=== PATIENT | male | born 1980 | race Caucasian/White ===

== ENCOUNTER 2024-01-22 01:15 | Inpatient (IN) | payer BC, OTHER ==
[~2024-01-22] VITALS: Ht 190.5 cm; Wt 161.5 kg
[2024-01-22 01:22] VITALS: BP_SYST 116; PULSE 124; RESP 16; TEMP 96.5; O2SAT 94
[2024-01-22] MEDS: LIDOCAINE 1% 10 MG/ML, 20 ML MDV INJ ONE (02:00)
[2024-01-22] MEDS ORDERED: VANCOMYCIN HCL 1000 MG/VIAL IV ONE (02:26)
[2024-01-22] MEDS: NACL 0.9% 2,500 ML IV ONE (02:28)
[2024-01-22] MEDS: VANCOMYCIN HCL 1,000 MG in NS 250 ML IV ONE (02:29)
[2024-01-22 02:39] LABS: BASOPHILS # (AUTO) 0.1 K/uL (0.0-0.2); BASOPHILS % (AUTO) 0.9 % (0.0-2.0); EOSINOPHILS # (AUTO) 0.2 K/uL (0.0-0.4); EOSINOPHILS % (AUTO) 1.9 % (0.0-4.0); HEMATOCRIT 42.4 % (36-54); HEMOGLOBIN 14.5 g/dL (14.0-18.0); LYMPHOCYTES # (AUTO) 0.3 K/uL (1.0-5.5); LYMPHOCYTES % (AUTO) 2.9 % (20.5-51.5); MEAN CORPUSCULAR HEMOGLOBIN 28 pg (27-31); MEAN CORPUSCULAR HGB CONC 34 % (32-36); MEAN CORPUSCULAR VOLUME 81 fL (79.0-98.0); MONOCYTES # (AUTO) 0.6 K/uL (0.0-1.0); MONOCYTES % (AUTO) 5.8 % (1.7-9.3); NEUTROPHILS # (AUTO) 8.6 K/uL (1.8-7.7); NEUTROPHILS % (AUTO) 88.5 % (40.0-70.0); PLATELET COUNT (AUTO) 149 K/uL (130-430); RED BLOOD CELL COUNT(AUTO) 5.25 MIL/uL (4.2-6.2); RED CELL DISTRIBUTION WIDTH 14.9 % (9.0-15.0); WHITE BLOOD COUNT (AUTO) 9.7 K/uL (4.8-10.8)
[2024-01-22 03:11] LABS: CALCIUM 8.4 mg/dL (8.4-11.0); CREATININE 1.38 mg/dL (0.55-1.30); POTASSIUM 3.7 mmol/L (3.5-5.1)
[2024-01-22 03:25] LABS: ALBUMIN 3.2 g/dL (3.4-4.8); BILIRUBIN,DIRECT 0.2 mg/dL (0.0-0.3); TOTAL BILIRUBIN 0.7 mg/dL (0.0-1.0); TOTAL PROTEIN, SERUM 7.6 g/dL (6.4-8.3)
[2024-01-22] MEDS ORDERED: MORPHINE 2 MG/ML INJ. SYRINGE ONE (03:26)
[2024-01-22] MEDS: MORPHINE 4 MG INJ. 4 MG/ML VIAL IVP ONE (04:15)
[2024-01-22] MEDS: ACETAMINOPHEN 500 MG TABLET PO ONE (04:19)
[2024-01-22] MEDS ORDERED: CLINDAMYCIN 600 mg/50mL D5W 50 ML IV ONE (04:33)
[2024-01-22] MEDS: CLINDAMYCIN 600 MG in D5W 50 ML IV ONE (04:50)
[2024-01-22] MEDS ORDERED: PRAV10TA PO (05:31)
[2024-01-22 11:03] VITALS: BP_SYST 116; PULSE 100; RESP 16; TEMP 98.3; O2SAT 100
[2024-01-22 11:19] VITALS: BP_SYST 136; PULSE 101; RESP 18; TEMP 98; O2SAT 98
[2024-01-22] MEDS ORDERED: LORazepam 2 MG/ML VIAL IVP PRN (11:45)
[2024-01-22] MEDS ORDERED: NALOXONE HCL 0.4 MG/ML AMP (NARCAN) IVP PRN ×2 (11:45)
[2024-01-22] MEDS ORDERED: ONDANSETRON HCL 4 MG/2 ML VIAL IVP PRN (11:45)
[2024-01-22] MEDS: NORMAL SALINE 5 ML DISP.SYRIN IVF SCH (13:54)
[2024-01-22] MEDS: CLINDAMYCIN 300 MG in D5W 50 ML IV ONE (13:54)
[2024-01-22] MEDS: HYDROcodone/ACETAMIN 10-325 MG TAB PO PRN (14:15)
[2024-01-22 16:15] VITALS: BP_SYST 133; PULSE 99; RESP 18; TEMP 98.2; O2SAT 98
[2024-01-22] MEDS ORDERED: CLINDAMYCIN 300 MG in D5W 50 ML IV SCH (18:00)
[2024-01-22] MEDS: VANCOMYCIN HCL 1.25 GM/NS 250 ML IV SCH (18:13)
[2024-01-22 19:30] VITALS: BP_SYST 109; PULSE 99; RESP 18; TEMP 99; O2SAT 99
[2024-01-22] MEDS: ATORVASTATIN 10 MG TABLET PO SCH (20:49)
[2024-01-22] MEDS ORDERED: PRAVASTATIN SODIUM 10 MG TABLET (PRAVACHOL) PO SCH (21:00)
[2024-01-22] MEDS: LINEZOLID 300 ML IV SCH (21:35)
[2024-01-22 22:30] VITALS: O2SAT 98
[2024-01-23] VITALS: BP_SYST 106; PULSE 88; RESP 16; TEMP 99.1; O2SAT 98
[2024-01-23 07:28] LABS: EOSINOPHILS # (AUTO) 0.4 K/uL (0.0-0.4); EOSINOPHILS % (AUTO) 7.9 % (0.0-4.0); HEMATOCRIT 38.8 % (36-54); LYMPHOCYTES # (AUTO) 0.4 K/uL (1.0-5.5); LYMPHOCYTES % (AUTO) 7.2 % (20.5-51.5); MEAN CORPUSCULAR HEMOGLOBIN 28 pg (27-31); MEAN CORPUSCULAR HGB CONC 34 % (32-36); MEAN CORPUSCULAR VOLUME 83 fL (79.0-98.0); MONOCYTES # (AUTO) 0.5 K/uL (0.0-1.0); MONOCYTES % (AUTO) 10.3 % (1.7-9.3); NEUTROPHILS # (AUTO) 3.9 K/uL (1.8-7.7); NEUTROPHILS % (AUTO) 74.6 % (40.0-70.0); PLATELET COUNT (AUTO) 135 K/uL (130-430); RED BLOOD CELL COUNT(AUTO) 4.68 MIL/uL (4.2-6.2); RED CELL DISTRIBUTION WIDTH 14.9 % (9.0-15.0); WHITE BLOOD COUNT (AUTO) 5.2 K/uL (4.8-10.8)
[2024-01-23 07:58] LABS: ALBUMIN 2.8 g/dL (3.4-4.8); CALCIUM 8.2 mg/dL (8.4-11.0); CREATININE 1.09 mg/dL (0.55-1.30); POTASSIUM 4.6 mmol/L (3.5-5.1); TOTAL BILIRUBIN 0.4 mg/dL (0.0-1.0); TOTAL PROTEIN, SERUM 6.8 g/dL (6.4-8.3)
[2024-01-23 08:05] VITALS: BP_SYST 95; PULSE 89; RESP 17; TEMP 98; O2SAT 100
[2024-01-23 10:29] VITALS: O2SAT 98
[2024-01-23 11:48] VITALS: BP_SYST 105; PULSE 84; RESP 17; TEMP 97.6; O2SAT 97
[2024-01-23] MEDS: ACETAMINOPHEN 325 MG TABLET PO PRN (16:38)
[2024-01-23 17:00] VITALS: BP_SYST 110; PULSE 82; RESP 17; TEMP 99.3; O2SAT 98
[2024-01-23 20:25] VITALS: BP_SYST 138; PULSE 87; RESP 18; TEMP 98.8; O2SAT 97
[2024-01-24 00:15] VITALS: BP_SYST 106; PULSE 87; RESP 18; TEMP 99.1; O2SAT 96
[2024-01-24 04:20] LABS: ERYTHROCYTE SEDIMENTATION RATE 47 MM/HR (0-15)
[2024-01-24 04:59] LABS: BASOPHILS % (AUTO) 0.4 % (0.0-2.0); EOSINOPHILS # (AUTO) 0.4 K/uL (0.0-0.4); HEMATOCRIT 40.2 % (36-54); HEMOGLOBIN 13.5 g/dL (14.0-18.0); LYMPHOCYTES # (AUTO) 0.8 K/uL (1.0-5.5); MEAN CORPUSCULAR HEMOGLOBIN 28 pg (27-31); MEAN CORPUSCULAR HGB CONC 34 % (32-36); MEAN CORPUSCULAR VOLUME 82 fL (79.0-98.0); MONOCYTES # (AUTO) 0.4 K/uL (0.0-1.0); MONOCYTES % (AUTO) 10.7 % (1.7-9.3); NEUTROPHILS # (AUTO) 2.1 K/uL (1.8-7.7); NEUTROPHILS % (AUTO) 56.9 % (40.0-70.0); PLATELET COUNT (AUTO) 140 K/uL (130-430); RED CELL DISTRIBUTION WIDTH 14.7 % (9.0-15.0); WHITE BLOOD COUNT (AUTO) 3.7 K/uL (4.8-10.8)
[2024-01-24 05:07] LABS: CREATININE 0.96 mg/dL (0.55-1.30)
[2024-01-24 08:00] VITALS: BP_SYST 131; PULSE 62; RESP 18; TEMP 99.2; O2SAT 98; O2SAT 99
[2024-01-24 12:51] VITALS: BP_SYST 122; PULSE 73; RESP 17; TEMP 99; O2SAT 99
[2024-01-24 16:27] VITALS: BP_SYST 128; PULSE 65; RESP 18; TEMP 99.1; O2SAT 98
[2024-01-24 20:30] VITALS: BP_SYST 128; PULSE 88; RESP 18; TEMP 97.3; O2SAT 96
[2024-01-24] MEDS: DIPHENHYDRAMINE INJ 50 MG/ML VIAL IVP ONE (23:11)
[2024-01-25] MEDS ORDERED: DIPHENHYDRAMINE HCL 12.5 MG/5 ML UDC PO SCH
[2024-01-25 00:30] VITALS: BP_SYST 141; PULSE 86; RESP 18; TEMP 97.5; O2SAT 86
[2024-01-25 04:40] LABS: BASOPHILS % (AUTO) 0.5 % (0.0-2.0); EOSINOPHILS # (AUTO) 0.4 K/uL (0.0-0.4); EOSINOPHILS % (AUTO) 8.6 % (0.0-4.0); HEMATOCRIT 40.7 % (36-54); HEMOGLOBIN 13.5 g/dL (14.0-18.0); LYMPHOCYTES # (AUTO) 2.1 K/uL (1.0-5.5); LYMPHOCYTES % (AUTO) 46.4 % (20.5-51.5); MEAN CORPUSCULAR HEMOGLOBIN 27 pg (27-31); MEAN CORPUSCULAR HGB CONC 33 % (32-36); MEAN CORPUSCULAR VOLUME 82 fL (79.0-98.0); MONOCYTES # (AUTO) 0.5 K/uL (0.0-1.0); MONOCYTES % (AUTO) 11.1 % (1.7-9.3); NEUTROPHILS # (AUTO) 1.5 K/uL (1.8-7.7); NEUTROPHILS % (AUTO) 33.4 % (40.0-70.0); PLATELET COUNT (AUTO) 152 K/uL (130-430); RED BLOOD CELL COUNT(AUTO) 4.97 MIL/uL (4.2-6.2); RED CELL DISTRIBUTION WIDTH 15.1 % (9.0-15.0); WHITE BLOOD COUNT (AUTO) 4.5 K/uL (4.8-10.8)
[2024-01-25 05:18] LABS: ALBUMIN 2.9 g/dL (3.4-4.8); CALCIUM 8.1 mg/dL (8.4-11.0); CREATININE 0.94 mg/dL (0.55-1.30); POTASSIUM 3.9 mmol/L (3.5-5.1); TOTAL BILIRUBIN 0.3 mg/dL (0.0-1.0); TOTAL PROTEIN, SERUM 6.3 g/dL (6.4-8.3)
[2024-01-25 05:29] LABS: ERYTHROCYTE SEDIMENTATION RATE 53 MM/HR (0-15)
[2024-01-25] MEDS: methylPREDNISolone SOD SUCC/PF 62.5 MG/ML VIAL IVP SCH (06:40)
[2024-01-25] MEDS: DIPHENHYDRAMINE HCL 12.5 MG/5 ML UDC PO SCH (06:50)
[2024-01-25 08:00] VITALS: O2SAT 98
[2024-01-25 12:06] VITALS: BP_SYST 135; PULSE 87; RESP 17; TEMP 97.4; O2SAT 97
[2024-01-25 16:16] VITALS: BP_SYST 139; PULSE 83; RESP 18; TEMP 97.5; O2SAT 94
[2024-01-25 20:01] VITALS: BP_SYST 132; PULSE 85; RESP 18; TEMP 96.9; O2SAT 96
[2024-01-25 23:17] VITALS: BP_SYST 120; PULSE 84; RESP 18; TEMP 97.2; O2SAT 95
[2024-01-26] MEDS: HYDROcodone/ACETAMIN 5-325 MG TAB (NORCO/ VICODIN) PO PRN (01:40)
[2024-01-26 04:05] LABS: ERYTHROCYTE SEDIMENTATION RATE 55 MM/HR (0-15)
[2024-01-26 04:33] LABS: BASOPHILS % (AUTO) 0.6 % (0.0-2.0); HEMATOCRIT 43.8 % (36-54); HEMOGLOBIN 14.7 g/dL (14.0-18.0); LYMPHOCYTES # (AUTO) 2.2 K/uL (1.0-5.5); LYMPHOCYTES % (AUTO) 38.3 % (20.5-51.5); MEAN CORPUSCULAR HEMOGLOBIN 27 pg (27-31); MEAN CORPUSCULAR HGB CONC 34 % (32-36); MEAN CORPUSCULAR VOLUME 81 fL (79.0-98.0); MONOCYTES # (AUTO) 0.7 K/uL (0.0-1.0); MONOCYTES % (AUTO) 11.7 % (1.7-9.3); NEUTROPHILS # (AUTO) 2.8 K/uL (1.8-7.7); NEUTROPHILS % (AUTO) 49.4 % (40.0-70.0); PLATELET COUNT (AUTO) 192 K/uL (130-430); RED BLOOD CELL COUNT(AUTO) 5.39 MIL/uL (4.2-6.2); RED CELL DISTRIBUTION WIDTH 14.8 % (9.0-15.0); WHITE BLOOD COUNT (AUTO) 5.7 K/uL (4.8-10.8)
[2024-01-26 04:39] LABS: CALCIUM 8.4 mg/dL (8.4-11.0); CREATININE 1.03 mg/dL (0.55-1.30); POTASSIUM 3.9 mmol/L (3.5-5.1)
[2024-01-26 08:00] VITALS: BP_SYST 145; PULSE 85; RESP 17; TEMP 97.4; O2SAT 96
[2024-01-26 08:10] VITALS: O2SAT 96
[2024-01-26] MEDS: DOXYCYCLINE HYCLATE 100 MG CAPSULE PO SCH (09:42)
[2024-01-26] MEDS ORDERED: DOXY100C5 PO (11:50)
[2024-01-26] MEDS ORDERED: METH-776 PO (11:50)
[2024-01-26 12:38] VITALS: BP_SYST 145; PULSE 85; RESP 17; TEMP 97.4; O2SAT 96
== END 2024-01-26 13:10 | disposition home or self-care (01) | DRG 872 ==
LOC: SED 01:15 → STU 05:00 → SMU 12:20
PROVIDERS: ADMIT Preventive Medicine Preventive Medicine/Occupational Environmental Medicine; ATTEND Preventive Medicine Preventive Medicine/Occupational Environmental Medicine
DX: A41.9 Sepsis, unspecified organism (principal); E87.1 Hypo-osmolality and hyponatremia; L02.211 Cutaneous abscess of abdominal wall; N17.9 Acute kidney failure, unspecified; E78.5 Hyperlipidemia, unspecified; E88.09 Other disorders of plasma-protein metabolism, not elsewhere classified; E83.51 Hypocalcemia; D72.819 Decreased white blood cell count, unspecified; D64.9 Anemia, unspecified; Z79.899 Other long term (current) drug therapy
CPT/HCPCS: 36415; 80048; 80053; 80076; 80202; 82948; 83605; 85025; 85651; 87040; 87070; 99291; 99292; J0696; J1200; J2001; J2020; J2270; J2930; J3370; J3490; J7060